=== PATIENT | male | born 1950 | race Caucasian/White ===

== ENCOUNTER 2017-09-24 10:24 | Day surgery (SDC) | payer MEDICARE ==
[~2017-09-24] VITALS: Ht 172.7 cm; Wt 79.3 kg
[~2017-09-24 10:24] MED LIST: ASPI325; FISH OIL 500 M1 EAC1; METROGEL55 GM; NEBI10; Niaspan1000 MG; Vitamin D2000 UNIT
== END 2017-09-24 12:08 | disposition home or self-care (01) ==
LOC: ORSCSDS 10:24
PROVIDERS: Surgery
PROC: 0DBH8ZX Excision of Cecum, Via Natural or Artificial Opening Endoscopic, Diagnostic (ICD-10-PCS; principal; 2017-09-24 11:45)
PROC: 0DBK8ZX Excision of Ascending Colon, Via Natural or Artificial Opening Endoscopic, Diagnostic (ICD-10-PCS; principal; 2017-09-24 11:45)
DX: Z12.11 Encounter for screening for malignant neoplasm of colon (principal); D12.0 Benign neoplasm of cecum; D12.2 Benign neoplasm of ascending colon; K57.30 Diverticulosis of large intestine without perforation or abscess without bleeding; Z86.010 Personal history of colon polyps; Z80.0 Family history of malignant neoplasm of digestive organs; Z79.82 Long term (current) use of aspirin; I10 Essential (primary) hypertension; Z79.899 Other long term (current) drug therapy; E78.00 Pure hypercholesterolemia, unspecified
CPT/HCPCS: 88305; 93005; 93010; J7120

== ENCOUNTER → 2018-04-21 | Outpatient (CLI) | payer MEDICARE | END | disposition home or self-care (01) | LOC: LAB SHORT 11:11 → PLD 11:11 | DX: L81.4 Other melanin hyperpigmentation (principal) | CPT/HCPCS: 88305 ==